=== PATIENT | male | born 1975 | race Caucasian/White ===

== ENCOUNTER → 2021-09-15 | Outpatient (CLI) | payer OTHER ==
[~2021-09-15] MED LIST: BACTRIM DS TAB1 EACH PO; COZAAR50 MG PO; ECOTRIN81 MG PO; IBUPROFEN800 MG PO; LIPITOR TAB 2020 MG PO; LOPRESSOR 25 MG25 MG PO; PERCOCET 7.5-31 EACH PO; PROTONIX40 MG PO; STOOL SOFTENER250 MG PO; ULTRAM50 MG PO; WELLBUTRIN SR150 M1 PO; ZOFRAN4 MG PO
== END ==
LOC: KOH-I 08:32
DX: S93.422D Sprain of deltoid ligament of left ankle, subsequent encounter (principal); M79.671 Pain in right foot; G89.29 Other chronic pain; R93.7 Abnormal findings on diagnostic imaging of other parts of musculoskeletal system
CPT/HCPCS: 73718